=== PATIENT | male | born 1965 | race Caucasian/White ===

== ENCOUNTER 2016-12-15 10:23 | Day surgery (SDC) | payer BC ==
[~2016-12-15] VITALS: Ht 180.3 cm; Wt 84.0 kg
[~2016-12-15 10:23] MED LIST: LIDOCAINE 1% (10mg/ml) 2ml SDV INJ ONE; LR 1,000 ML IV SCH; ROSU20TA23 PO; TADA5TAB PO
[2016-12-15 10:38] VITALS: BP 133/75; PULSE 59; RESP 14; TEMP 98.2; O2SAT 95; Ht 180.3 cm; Wt 84.0 kg
--- NOTE | 2016-12-15 11:48 | ANESPREOP ---
Anesthesia Record Date and Time DATE: 12/15/16 TIME: 11:46 Pre-Op Diagnosis [facility] Proposed Surgical Procedure COLONOSCOPY NPO since: [place] Allergies: Coded Allergies: No Known Allergies (Unverified , 12/15/16) Ht/Wt/BMI Height: 5 ' 11.00 " Weight: 84.000 kg BMI: 25.8 kg/m2 Vital Signs Date Time Temp Pulse Resp B/P Pulse Ox O2 Delivery O2 Flow Rate FiO2 12/15/16 10:38 98.2 59 14 133/75 95 Room Air Medications Inpatient Medications Current Medications Medications (Trade) Dose Ordered Sig/Eric Start Time Stop Time Status Last Admin Dose Admin Lactated Ringer's (Lactated Ringers) 1,000 ml @ 50 mls/hr Q20H 12/15/16 07:00 12/15/16 11:14 50 MLS/HR Rosuvastatin Calcium (Rosuvastatin Calcium) 20 Mg Tablet, 1 TAB PO DAILY, ( Reported) Last Taken: on 12/14/162099 Tadalafil (Cialis) 5 Mg Tablet, 1 TAB PO DAILY PRN for PRN ORDERS, (Reported) Last Taken: on 12/12/16 Currently on Beta Maurice: No Medical/Surgical History Anesthesia PMH: Reports: Cancer (BASAL CELL CARCINOMA OF SKIN ), Denies: Anesthesia Reactions (no airway issues), Clotting Problems, Glaucoma, Malignant Hyperthermia, Renal Disease, Sleep Apnea, Thyroid Disease Smoking Status: Never smoker Has pt. smoked today?: No Use Chewing Tobacco?: No Second Hand Exposure: No Alcohol Intake: none, a few times a month Past Surgical History Orthopedic Surgeries: Abdominal Surgeries: Genitourinary Surgeries: Cardiac Surgeries: Endocrine Surgeries: Reproductive Surgeries: Yes - VASECTOMY Neurological Surgeries: Ear Surgeries: Nose Surgeries: Throat Surgeries: Yes - tonsilectomy Other Surgeries: Yes - LESION DESTRUCTION- BASAL CELL CARCINOMA PER H&P Anesthesia Adverse Reactions: FOUND none Family Hx of Anesthesia Advers: none Hx of Motion Sickness: No Pertinent Findings EKG Rhythm: Sinus Bradycardia Physical Exam Respiratory: Bilat breath sounds equal, Lungs clear Cardiovascular: FOUND Regular rate, rhythm, FOUND No murmur Airway Assessment Mallampati Score: I TMD: 3 Fingerbreadths Neck Extension: Good Overall Assessment: No Airway Concerns ASA: 1 Plan Anesthesia Plan: TIVA Discussion Discussed risks/options/alternatives of anesthesia and questions answered. Patient consents. Nursing pain assessment noted. Present: Spouse Attestation Statement Prior to the delivery of any anesthetic medication, I examined the patient, developed the plan, obtained the patient's consent and discussed the risk and benefits of the procedure with the patient/guardian. JOEY ALSTON CRNA December 15, 2016 11:48
[2016-12-15] MEDS ORDERED: PROPOFOL 500mg 50 ML IV ONE (12:20)
[2016-12-15 12:44] VITALS: BP 100/55; PULSE 53; RESP 16; TEMP 97.2; O2SAT 100
[2016-12-15 12:50] VITALS: BP 106/57; PULSE 66; RESP 17; O2SAT 97
--- NOTE | 2016-12-15 12:50 | ANESPO ---
Post-Op Note Date 12/15/16 Time: 12:50 Status Pt Participated in Evaluation: Pt participated in person Vital Signs Date Time Temp Pulse Resp B/P Pulse Ox O2 Delivery O2 Flow Rate FiO2 12/15/16 12:44 97.2 53 16 100/55 100 Room Air Respiratory Function: Airway patent, Regular respirations Cardiovascular Function: Regular pulse Telemetry Pattern: SR Mental Status: Alert/oriented Pain Level Intensity: 0 Unable to Assess Pain Due To: Pt Sleeping Hydration: IV infusing Complications during Recovery None apparent Follow-Up Instructions Instructions Per Surgeon JOEY ALSTON CRNA December 15, 2016 12:50
[2016-12-15 13:00] VITALS: BP 114/63; PULSE 52; RESP 17; O2SAT 98
--- NOTE | 2016-12-15 17:47 | OPNOTEF ---
DATE OF PROCEDURE: 12/15/2016 SURGEON: Souleymane Mcclellan MD PREOPERATIVE DIAGNOSIS Colorectal cancer surveillance. POSTOPERATIVE DIAGNOSIS Colorectal cancer surveillance, normal colonoscopy. PROCEDURE: Colonoscopy. ANESTHESIA: TIVA. BRIEF HISTORY/INDICATIONS Alok is a 51-year-old patient of mine who was seen for comprehensive exam. We discussed colorectal cancer surveillance and decided to proceed with colonoscopy as part of his screening. For completeness please refer to office notes. FINDINGS Upon colonoscopy, there was no evidence for angiodysplastic lesions, polyps, diverticula or obinna malignancies. DESCRIPTION OF PROCEDURE After informed consent was obtained, the patient was brought to the endoscopy suite and placed on the table in left lateral decubitus position. The patient subsequently underwent total intravenous anesthesia by the nurse assistant professor of music per my request. Next, a digital rectal examination was performed. Normal sphincter tone. No rectal masses were appreciated. An Olympus colonoscope was inserted in the anus and advanced with the lumen of the colon under direct visualization at all times until the cecum was ascertained. Triangulation of the tenia coli, ileocecal valve and appendiceal lumen were all visualized. The scope was then slowly withdrawn, again while maintaining visualization of the lumen at all times. As stated above, the entire colon was without evidence for angiodysplastic lesions, polyps, diverticula or obinna malignancies. The scope continued to be withdrawn until it was brought forth back into the rectal vault. A J-maneuver was then performed. No worrisome perianal pathology was noted. The scope was allowed to straighten and was withdrawn through the anal verge. The patient tolerated the procedure without difficulty and was sent back to the preop area in stable condition. Secondary to the absence of findings upon this colonoscopy, the patient will not need to undergo a repeat colonoscopy until ten years from now unless new indications should arise. MTDEtta
== END 2016-12-15 13:16 | disposition home or self-care (01) ==
LOC: NSC 10:23
PROVIDERS: ATTEND Family Medicine
DX: Z12.11 Encounter for screening for malignant neoplasm of colon (principal); E78.5 Hyperlipidemia, unspecified; Z79.899 Other long term (current) drug therapy
CPT/HCPCS: 45378; J2704; J7120